=== PATIENT | male | born 1970 | race Caucasian/White ===

== ENCOUNTER 2016-11-30 19:08 | Emergency (ER) | payer OTHER ==
[2016-11-30 21:36] VITALS: BP 122/77
== END 2016-11-30 21:36 | disposition home or self-care (01) ==
LOC: ED 19:08
DX: E11.40 Type 2 diabetes mellitus with diabetic neuropathy, unspecified (principal); I10 Essential (primary) hypertension; E78.00 Pure hypercholesterolemia, unspecified

== ENCOUNTER 2016-12-28 17:53 | Emergency (ER) | payer OTHER ==
[~2016-12-28] VITALS: Ht 180.3 cm; Wt 105.7 kg
[2016-12-28 21:45] VITALS: BP 116/76
== END 2016-12-28 21:45 | disposition home or self-care (01) ==
LOC: ED 17:53
DX: M25.532 Pain in left wrist (principal); M79.89 Other specified soft tissue disorders
CPT/HCPCS: 90715

== ENCOUNTER 2018-03-17 17:31 | Emergency (ER) | payer OTHER ==
[~2018-03-17] VITALS: Ht 180.3 cm; Wt 108.4 kg
[2018-03-17 17:45] VITALS: Ht 180.3 cm; Wt 108.4 kg
[2018-03-17 19:54] VITALS: BP 123/92
== END 2018-03-17 19:54 | disposition home or self-care (01) ==
LOC: ED 17:31
DX: S39.012A Strain of muscle, fascia and tendon of lower back, initial encounter (principal); E11.9 Type 2 diabetes mellitus without complications; I10 Essential (primary) hypertension; E78.00 Pure hypercholesterolemia, unspecified; X50.1XXA Overexertion from prolonged static or awkward postures, initial encounter; Y93.89 Activity, other specified; Y92.89 Other specified places as the place of occurrence of the external cause; Y99.8 Other external cause status
CPT/HCPCS: J1885